=== PATIENT | female | born 1995 | race Hispanic/Latino ===

== ENCOUNTER 2017-08-16 06:43 | Emergency (ER) | payer OTHER ==
--- NOTE | 2017-08-16 08:24 | ED PDOC ---
Arrival/HPI - General Time Seen by Provider: 08/16/17 08:12 Historian: Patient - History of Present Illness Narrative History of Present Illness (Text): 08/16/17 08:17 A 21 year old female, whose past medical history includes right leg surgery, on control pills, presents to the emergency department complaining of 1-2 week duration, worsening left sided headache with associated left ear and left- sided neck discomfort. She describes the pain as a pressure sensation radiating down the left side of her ear and neck. The patient states that she was seen by her PMD yesterday for her symptoms and was told that she had an infection on the left side of her head for which she was prescribed antibiotics. The patient notes that all she took for pain was 1 dose of Aleve yesterday morning. She states that her symptoms worsened today, not allowing her to sleep, which prompted her to come into the emergency department. The patient denies fevers, chills, dizziness, chest pain, shortness of breath, dyspnea on exertion, cough, abdominal pain, nausea, vomiting, diarrhea, urinary/bowel changes, or any other complaint. PMD: Dr. Melanie Koo Time/Duration: Other (1-2 weeks) Symptom Onset: Gradual Symptom Course: Unchanged Activities at Onset: Rest, Light Context: Home Past Medical History - Provider Review Nursing Documentation Reviewed: Yes - Past History Past History: No Previous - Infectious Disease Hx of Infectious Diseases: None - Tetanus Immunization Tetanus Immunization: Unknown - Cardiac Hx Pacemaker: No - Pulmonary Hx Asthma: Yes - Neurological Hx Paralysis: No - Hematological/Oncological Hx Blood Transfusions: No Hx Blood Transfusion Reaction: No - Musculoskeletal/Rheumatological Hx Musculoskeletal Disorders: No - Psychiatric Hx Depression: No Hx Emotional Abuse: No Hx Physical Abuse: No Hx Substance Use: No - Past Surgical History Past Surgical History: No Previous - Anesthesia Hx Anesthesia Reactions: No Hx Malignant Hyperthermia: No - Suicidal Assessment Feels Threatened In Home Enviroment: No Family/Social History - Physician Review Nursing Documentation Reviewed: Yes Family/Social History: No Known Family HX Hx Alcohol Use: No Hx Substance Use: No Hx Substance Use Treatment: No Allergies/Home Meds Allergies/Adverse Reactions: Allergies Penicillins Allergy (Verified 08/16/17 08:41) ANAPHYLAXIS Review of Systems - Physician Review All systems were reviewed & negative as marked: Yes - Review of Systems Constitutional: absent: Fevers, Night Sweats Respiratory: absent: SOB, Cough Cardiovascular: absent: Chest Pain, [place] Gastrointestinal: absent: Abdominal Pain, Stool Changes, Diarrhea, Nausea, Vomiting Genitourinary Female: absent: Urine Output Changes Musculoskeletal: Neck Pain. 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 Small lesion 1cm x 2cm in the parietal area. ) Pupils: Present: PERRL Extroacular Muscles: Present: EOMI Conjunctiva: Present: Normal Mouth: Present: Moist Mucous Membranes Nose (Internal): Present: Normal Inspection, No Active Bleeding, Moist, Engorged , Edematous, Boggy, Clear Mucous, Rhinorrhea, Purulent Mucous, Septal Deviation , Septal Hematoma, Epistaxis, Other Neck: Present: Normal Range of Motion, Other (Lymph nodes along the posterior chain of the left side of the neck. ) Respiratory/Chest: Present: Clear to Auscultation, Good Air Exchange. No: Respiratory Distress, Accessory Muscle Use Cardiovascular: Present: Regular Rate and Rhythm, Normal S1, S2. No: Murmurs Abdomen: Present: Normal Bowel Sounds. No: Tenderness, Distention, Peritoneal Signs Back: Present: Normal Inspection Upper Extremity: Present: Normal Inspection. No: Cyanosis, Edema Lower Extremity: Present: Normal Inspection. No: Edema Neurological: Present: GCS=15, CN II-XII Intact, Speech Normal Skin: Present: Warm, Dry, Normal Color. No: Rashes Psychiatric: Present: Alert, Oriented x 3, Normal Insight, Normal Concentration Medical Decision Making ED Course and Treatment: 08/16/17 08:28 Impression: A 21 year old female presents to the emergency department complaining of 1-2 week duration, worsening, pressure- like headache radiating to her left ear and neck. Plan: -- Reassess and disposition Prior Visits: Notes and results from previous visits were reviewed. Patient was last seen in the emergency department on 12/16/13. The patient was seen in the emergency department for a complaint of left elbow, forearms, thigh, and coccygeal area pain s/p trauma. The patient was discharged home. Progress Notes: CT HEAD WITHOUT CONTRAST Dictator : Feliciano Coronado MD Report Date : 08/16/2017 09:21:14 IMPRESSION: No acute findings - Lab Interpretations Lab Results: 08/16/17 10:00 08/16/17 10:00 Lab Results 08/16/17 10:00: Sodium 138, Chloride 103, Potassium 4.5, Carbon Dioxide 25, Anion Gap 14, BUN 10, Creatinine 0.8, Est GFR ( Amer) > 60, Est GFR (Non- Af Amer) > 60, Random Glucose 87, Calcium 9.5, Total Bilirubin 0.7, AST 40 H, ALT 29, Alkaline Phosphatase 63, Total Protein 7.3, Albumin 4.2, Globulin 3.1, Albumin/Globulin Ratio 1.4 08/16/17 10:00: pO2 28 L, VBG pH 7.31 L, VBG pCO2 53.0, VBG HCO3 26.7, VBG Total CO2 28.3 H, VBG O2 Sat (Calc) 60.0, VBG Base Excess -0.4 L, VBG Potassium 4.4, Sodium 135.0, Chloride 104.0, Glucose 87, Lactate 1.4, FiO2 21.0, Venous Blood Potassium 4.4 08/16/17 10:00: WBC 7.6, RBC 4.39, Hgb 13.2, Hct 40.0, MCV 91.1, MCH 30.1, MCHC 33.0, RDW 12.8, Plt Count 193, MPV 10.9, Gran % 60.7, Lymph % (Auto) 28.5, Chambers % (Auto) 6.7 H, Eos % (Auto) 3.8, Baso % (Auto) 0.3, Gran # 4.61, Lymph # 2.2, Chambers # 0.5, Eos # 0.3, Baso # 0.02 - RAD Interpretation Radiology Orders: 08/16/17 08:42 HEAD W/O CONTRAST [CT] Stat - Medication Orders Current Medication Orders: Discontinued Medications Ketorolac Tromethamine (Toradol) 30 mg IVP STAT STA Stop: 08/16/17 08:43 Last Admin: 08/16/17 10:14 Dose: 30 mg MAR Pain Assessment Document 08/16/17 10:14 [facility] (Rec: 08/16/17 10:15 [facility] [id number]) Pain Reassessment Is this a pain reassessment? No Sleep Is patient sleeping during reassessment? 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 Intensity of Pain at present 7 IVP Administration Document 08/16/17 10:14 [facility] (Rec: 08/16/17 10:15 [facility] [id number]) Charges for Administration # of IVP Administrations 1 Ondansetron HCl (Zofran Inj) 8 mg IVP STAT STA Stop: 08/16/17 08:43 Last Admin: 08/16/17 10:15 Dose: 8 mg IVP Administration Document 08/16/17 10:15 [facility] (Rec: 08/16/17 10:15 [facility] [id number]) Charges for Administration # of IVP Administrations 1 - Scribe Statement The provider has reviewed the documentation as recorded by the Scribe Audrey Singh Provider Scribe Attestation: All medical record entries made by the Scribe were at my direction and personally dictated by me. I have reviewed the chart and agree that the record accurately reflects my personal performance of the history, physical exam, medical decision making, and the department course for this patient. I have also personally directed, reviewed, and agree with the discharge instructions and disposition. Disposition/Present on Arrival - Present on Arrival Any Indicators Present on Arrival: No History of DVT/PE: No History of Uncontrolled Diabetes: No Urinary Catheter: No History Surgical Site Infection Following: None - Disposition Have Diagnosis and Disposition been Completed?: Yes Diagnosis: Acute cervical adenitis, Cephalgia Disposition: HOME/ ROUTINE Disposition Time: 11:33 Patient Plan: Discharge Condition: GOOD Discharge Instructions (ExitCare): Adenitis (ED) Additional Instructions: Valerie- Sorry that you are not feeling well. All of your tests were normal including the Head CT Scan. Continue the antibiotic that he prescribed for you. Add the motrin for the pain. Return to us if problems. Follow up with your doctor next week. Aditya Farah Dr
[2017-08-16 08:29] VITALS: BMI 25.0
[2017-08-16 08:40] VITALS: TEMP 98.3
--- NOTE | 2017-08-16 09:22 | CT ---
PROCEDURE: CT HEAD WITHOUT CONTRAST. HISTORY: Severe Headache COMPARISON: None available. TECHNIQUE: Axial computed tomography images were obtained through the head/brain without intravenous contrast. Radiation dose: Total exam DLP = 737 mGy-cm. This CT exam was performed using one or more of the following dose reduction techniques: Automated exposure control, adjustment of the mA and/or kV according to patient size, and/or use of iterative reconstruction technique. FINDINGS: HEMORRHAGE: No intracranial hemorrhage. BRAIN: No mass effect or edema. No atrophy or chronic microvascular ischemic changes. VENTRICLES: Unremarkable. No hydrocephalus. CALVARIUM: Unremarkable. PARANASAL SINUSES: There is opacification of the ethmoid and sphenoid sinuses MASTOID AIR CELLS: Unremarkable as visualized. No inflammatory changes. OTHER FINDINGS: None. IMPRESSION: No acute findings
[2017-08-16 10:22] LABS: BASO # 0.02 K/mm3 (0.0-2.0); BASO % 0.3 % (0.0-3.0); EOS # 0.3 (0.0-0.7); EOS % 3.8 % (1.5-5.0); GRAN # 4.61 (1.4-6.5); GRAN % 60.7 % (50.0-68.0); HEMOGLOBIN 13.2 g/dL (12.0-16.0); LYMPH # 2.2 (1.2-3.4); LYMPH % 28.5 % (22.0-35.0); MEAN CELL VOLUME 91.1 fl (80.0-105.0); MEAN CORPUSCULAR HEMOGLOBIN 30.1 pg (25.0-35.0); MEAN PLATELET VOLUME 10.9 fl (7.0-11.0); MONO # 0.5 (0.1-0.6); MONO % 6.7 % (1.0-6.0); RBC 4.39 10^6/uL (3.5-6.1); RED CELL DISTRIBUTION WIDTH 12.8 % (11.5-14.5); WHITE BLOOD COUNT 7.6 10^3/ul (4.5-11.0)
[2017-08-16 10:28] VITALS: BP 126/79; PULSE 67; RESP 16; O2SAT 100
[2017-08-16 10:30] LABS: VENOUS BLOOD GAS BASE EXCESS -0.4 mmol/L (0.0-2.0); VENOUS BLOOD GAS PO2 28 mm/Hg (30-55); VENOUS BLOOD PH 7.31 (7.32-7.43)
[2017-08-16 10:48] LABS: ALB/GLOB RATIO 1.4 (1.1-1.8); ALBUMIN 4.2 g/dL (3.0-4.8); ALT/SGPT 29 U/L (7-56); AST/SGOT 40 U/L (14-36); BLOOD UREA NITROGEN 10 mg/dL (7-21); CALCIUM 9.5 mg/dL (8.4-10.5); GFR AFRICAN-AMERICAN > 60; GFR NON-AFRICAN AMERICAN > 60
[2017-08-16] MEDS ORDERED: Oxycodone/Acetaminophen 5/325 mg Tab PO STA (12:08)
== END 2017-08-16 12:30 | disposition home or self-care (01) ==
LOC: ED 06:43
DX: L04.0 Acute lymphadenitis of face, head and neck (principal); R51 Headache; Z88.0 Allergy status to penicillin
CPT/HCPCS: 70450; 80053; 82803; 85025; 87040; 96374; 96375; 99285; J1885; J2405